=== PATIENT | male | born 1955 | race Caucasian/White ===

== ENCOUNTER 2024-09-10 16:27 | Observation (INO) ==
[2024-09-10 17:10] LABS: RETICULOCYTE % 1.03 % (0.8-2.2)
[2024-09-10 17:21] LABS: ALANINE AMINOTRANSFERASE 26 Units/L (12-78); ALBUMIN 3.7 g/dL (3.4-5.0); ALKALINE PHOSPHATASE 50 Units/L (46-116); ASPARTATE AMINO TRANSFERASE 31 Units/L (15-37); BLOOD UREA NITROGEN 27 mg/dL (7-18); CALCIUM 8.7 mg/dL (8.5-10.1); CARBON DIOXIDE 23.6 mmol/L (21-32); CHLORIDE 108 mmol/L (98-107); CREATININE 1.75 mg/dL (0.70-1.30); GLUCOSE 110 mg/dL (65-99); POTASSIUM 4.2 mmol/L (3.5-5.1); SODIUM 140 mmol/L (136-145); TOTAL PROTEIN 6.9 g/dL (6.4-8.2); eGFR NON BLACK RACES 41 (>60)
[2024-09-10] MEDS: PROTONIX INJ 40 MG VIAL 80 MG in NS 100 ML IV 80 ML IV SCH (17:36)
[2024-09-10 17:47] LABS: IRON 11 ug/dL (50-175); TOTAL IRON BINDING CAPACITY 555 ug/dL (250-450)
--- NOTE | 2024-09-10 17:48 | DR.DIZZY ---
HPI Time seen Time Seen by Provider: 09/10/24 17:25 PCP Primary Care Physician: Elizabeth Ewing Complaint Chief Complaint:: Patient stated that he had blood drawn today at his doctors and they called him approx thirty minutes prior to arrival and told him that his Hgb was 6.0 COVID-19 Coronavirus risk:travel/contact w/high risk person: No Has patient experienced Coronavirus symptoms: No Source History Provided: Patient Mode of Arrival Mode of Arrival: Ambulatory Timing Onset of Chief Complaint: 09/10/24 PMH PMH Past Medical History: Yes Past Medical History: Anemia, Asthma and COPD Past Medical History Comment: Brain Hemorrhage at , Lung Mass Past Surgical History: Yes Surgical History: Unknown Past Surgical History Comment: Brain sx Family History History of Family Medical Conditions: Yes Family Medical History: Cancer Social History Does patient currently use any type of tobacco product: No Have you used tobacco products in the last 12 months: No Type of Tobacco Use: None Does any household member use tobacco: No Alcohol Use: None Do you use any recreational Drugs:: No Lives With: Alone Lives Where: Home Travel Risk Coronavirus risk:travel/contact w/high risk person: No Has patient experienced Coronavirus symptoms: No Infectious screening In the last 2 months have you had wt loss of >10#?: NO Have you had fever, night sweats or hemotysis?: No Have you traveled outside the country in the last 6 months?: No Isolation: Standard PE Vital Signs Vitals: Vital Signs Temperature 97.8 F Pulse Rate 86 Pulse Rate 83 Pulse Rate 79 Pulse Rate 81 Pulse Rate 81 Pulse Rate 89 Pulse Rate 85 Pulse Rate 85 Pulse Rate 99 Pulse Rate 100 Pulse Rate 120 Respiratory Rate 20 Respiratory Rate 19 Respiratory Rate 15 Respiratory Rate 21 Respiratory Rate 17 Respiratory Rate 25 Respiratory Rate 16 Respiratory Rate 25 Respiratory Rate 26 Blood Pressure 143/70 Blood Pressure 140/68 Blood Pressure 135/73 Blood Pressure 146/69 Blood Pressure 135/62 O2 Sat by Pulse Oximetry 99 O2 Sat by Pulse Oximetry 96 O2 Sat by Pulse Oximetry 97 O2 Sat by Pulse Oximetry 97 O2 Sat by Pulse Oximetry 96 O2 Sat by Pulse Oximetry 99 O2 Sat by Pulse Oximetry 97 O2 Sat by Pulse Oximetry 96 O2 Sat by Pulse Oximetry 98 O2 Sat by Pulse Oximetry 96 O2 Sat by Pulse Oximetry 96 ROR Labs Reviewed 09/10/24 13:10 Laboratory: Absolute Retic 0.0405 10^6/uL 09/10/24 13:10 Percent Retic 1.03 % (0.8-2.2) 09/10/24 13:10 Sodium 140 mmol/L (136-145) 09/10/24 13:10 Corrected Sodium TNP 09/10/24 13:10 Potassium 4.2 mmol/L (3.5-5.1) 09/10/24 13:10 Chloride 108 mmol/L (98-107) H 09/10/24 13:10 Carbon Dioxide 23.6 mmol/L (21-32) 09/10/24 13:10 BUN 27 mg/dL (7-18) H 09/10/24 13:10 Creatinine 1.75 mg/dL (0.70-1.30) H 09/10/24 13:10 Est GFR (MDRD) Af Amer 50 (>60) L 09/10/24 13:10 Est GFR (MDRD) Non-Af 41 (>60) L 09/10/24 13:10 Glucose 110 mg/dL (65-99) H 09/10/24 13:10 Calcium 8.7 mg/dL (8.5-10.1) 09/10/24 13:10 Corrected Calcium TNP 09/10/24 13:10 Iron 11 ug/dL (50-175) L 09/10/24 13:10 TIBC 555 ug/dL (250-450) H 09/10/24 13:10 Transferrin 426 mg/dL (202-364) H 09/10/24 13:10 Ferritin 4 ng/mL (26-388) L 09/10/24 13:10 Total Bilirubin 0.30 mg/dL (0.2-1.0) 09/10/24 13:10 AST 31 Units/L (15-37) 09/10/24 13:10 ALT 26 Units/L (12-78) 09/10/24 13:10 Alkaline Phosphatase 50 Units/L (46-116) 09/10/24 13:10 Total Protein 6.9 g/dL (6.4-8.2) 09/10/24 13:10 Albumin 3.7 g/dL (3.4-5.0) 09/10/24 13:10 Globulin 3.2 g/dL (2.5-4.5) 09/10/24 13:10 Albumin/Globulin Ratio 1.2 Ratio (1.1-2.1) 09/10/24 13:10 Vitamin B12 241 pg/mL (193-986) 09/10/24 13:10 Folate 15.0 ng/mL (>8.6) 09/10/24 13:10 Stl Occult Blood (IFOB) Positive (NEGATIVE) A 09/10/24 17:00 Blood Type A POSITIVE 09/10/24 16:53 Antibody Screen Negative 09/10/24 16:53 Opioid Opioid Risk Tool Age (Derik box if 16-45): No History of Preadolescent Sexual Abuse: No Total: 0 Total Score Risk Category: Low Risk Copyright: Dash HERNANDEZ predicting aberrant behaviors Discharge Plan Diagnosis Discharge Problem: Anemia Qualifiers: Anemia type: unspecified type Qualified Code(s): D64.9 - Anemia, unspecified GI bleed Qualifiers: GI bleed type/associated pathology: unspecified gastrointestinal hemorrhage type Qualified Code(s): K92.2 - Gastrointestinal hemorrhage, unspecified Discharge Plan Patient Disposition: ADMITTED INPATIENT Condition: Stable Orders to Discharge Patient Discharge Orders: Transfer (Routine); Ordered 09/10/24 Ordered By: JENNIE MONTEZ
[2024-09-10 20:20] VITALS: BMI 22.9
[2024-09-10] MEDS: PULMICORT NEB TX 0.5 MG NEB SCH (20:47)
[2024-09-10] MEDS ORDERED: [UNRECOGNIZED DRUG - OTHER] IN SCH (21:00)
[2024-09-10] MEDS ORDERED: BUDESONIDE FORMOTEROL IN SCH (21:00)
[2024-09-10] MEDS: CRESTOR TAB 10 MG PO SCH (21:12)
[2024-09-10] MEDS: DESYREL PO SCH (21:50)
[2024-09-10] MEDS: KLONOPIN TAB 1 MG PO PRN (23:22)
[2024-09-11 05:21] LABS: BASOPHILS % (AUTO) 1.1 % (0.2-1.0); EOSINOPHILS # (AUTO) 0.2 x10^3/uL (0.0-0.2); EOSINOPHILS % (AUTO) 5.4 % (0.9-2.9); HEMATOCRIT 25.9 % (42.0-54.0); LYMPHOCYTES # (AUTO) 1.4 X10^3/uL (1.3-2.9); LYMPHOCYTES % (AUTO) 34.3 % (21.0-51.0); MEAN CORPUSCULAR HEMOGLOBIN 19.9 pg (27.0-34.0); MEAN CORPUSCULAR HGB CONC 32.1 g/dL (33.0-35.0); MEAN CORPUSCULAR VOLUME 61.8 fL (80.0-100.0); MEAN PLATELET VOLUME 9.1 fL (7.4-11.0); MONOCYTES # (AUTO) 0.4 x10^3/uL (0.3-0.8); MONOCYTES % (AUTO) 9.6 % (0.0-13.0); NEUTROPHILS # (AUTO) 2.1 x10^3/uL (2.2-4.8); NEUTROPHILS % (AUTO) 49.6 % (42.0-75.0); PLATELET COUNT 270 X10^3/uL (150.0-450.0); RED BLOOD COUNT 4.19 X10^6/uL (4.7-6.0); RED CELL DISTRIBUTION WIDTH 30.3 % (11.6-16.5); WHITE BLOOD COUNT 4.1 X10^3/uL (3.6-10.0)
[2024-09-11 05:25] LABS: HEMOGLOBIN 8.3 g/dL (13.5-18.0)
[2024-09-11 05:35] LABS: ALANINE AMINOTRANSFERASE 20 Units/L (12-78); ALBUMIN 3.1 g/dL (3.4-5.0); ALKALINE PHOSPHATASE 42 Units/L (46-116); ASPARTATE AMINO TRANSFERASE 20 Units/L (15-37); BLOOD UREA NITROGEN 26 mg/dL (7-18); CALCIUM 8.2 mg/dL (8.5-10.1); CARBON DIOXIDE 25.8 mmol/L (21-32); CHLORIDE 109 mmol/L (98-107); COR CA(FOR HYPOALB) 8.9 mg/dL (8.5-10.1); CREATININE 1.53 mg/dL (0.70-1.30); GLUCOSE 85 mg/dL (65-99); SODIUM 142 mmol/L (136-145); TOTAL PROTEIN 5.8 g/dL (6.4-8.2); eGFR NON BLACK RACES 48 (>60)
[2024-09-11 05:36] LABS: ANISOCYTOSIS 3+; HYPOCHROMASIA 2+; MICROCYTOSIS 2+; OVALOCYTES 1+; PLATELET MORPHOLOGY COMMENT NORMAL (NORMAL); POIKILOCYTOSIS 1+; TARGET CELLS SLIGHT
[2024-09-11] MEDS: PROVENTIL NEB TX 0.083% 2.5MG/ 3ML NEB SCH (08:42)
--- NOTE | 2024-09-11 08:51 | DR.H&P ---
H&P History & Physical for Day of: H&P Date: 09/10/24 Chief Complaint Chief Complaint: weakness and fatigue, sob on exertion, "anemic" History of Present Illness History of Present Illness: PT IS 69 WM, ER ADMISSION AFTER PRESENTING WITH CO HE HAD ABNORMAL LABS PER PCP AND DR AMEZQUITA, WITH RESULTS OF LOW HGB AND PT WAS INSTRUCTED TO REPORT TO ER. 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 PT REPORTS HE HAS BEEN HAVING INCREASED COUGH, MILD TROUBLE SWALLOWING OR COUGING WITH EATING/DRINKING. PT HAS POSITIVE OCCULT STOOL AND HAS HAD HX OF ANEMIA IN THE PAST YEAR. 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 PT ADMITTED FOR TREATMENT AND EVALUATION OF ACUTE ILLNESS. Past Medical History Past Medical History: Anemia, Arthritis, Asthma and COPD Past Surgical History Surgical History: No History Family History Family Medical History: Hypertension Social History Does patient currently use any type of tobacco product: No Have you used tobacco products in the last 12 months: No Type of Tobacco Use: None Does any household member use tobacco: No Alcohol Use: None Drug Use: None Medications Home Medications: Home Medications Medication Instructions Recorded Confirmed Type amlodipine 2.5 mg tablet 2.5 mg PO QDAY 09/10/2408/01 History budesonide-formoterol HFA 160 2 puff inhalation BID 09/10/24 History mcg-4.5 mcg/actuation aerosol inhaler (Breyna) clonazepam 1 mg tablet 1 mg PO QDAY PRN 09/10/24 History ergocalciferol (vitamin D2) 1,250 1,250 mcg PO 2XW 08/0109/10/24 History mcg (50,000 unit) capsule escitalopram oxalate 5 mg tablet 5 mg PO QDAY anxiety 09/10/24 09/10/24 History famotidine 40 mg tablet 40 mg PO QDAY 09/10/2409/10 History fenofibrate 160 mg tablet 160 mg PO QPM 09/10/2409/10 History levocetirizine 5 mg tablet 5 mg PO QDAY allergies 08/0109/10/24 History levothyroxine 75 mcg tablet 75 mcg PO QDAY 09/10/24 History losartan 25 mg tablet 25 mg PO DAILY 09/10/2408/01 History meloxicam 15 mg tablet 15 mg PO QDAY 09/10/2409/10 History pantoprazole 40 mg tablet,delayed 40 mg PO QDAY 09/10/24 History release rosuvastatin 5 mg tablet 5 mg PO QPM 09/10/24 5 History trazodone 50 mg tablet 50 mg PO QPM insomnia 09/10/24 History Allergies Allergies Allergy/AdvReac Type Severity Reaction Status Date / Time codeine Allergy Verified 09/10/24 16:56 Labs 09/11/24 04:44 09/11/24 04:44 Labs: Laboratory WBC 4.1 X10^3/uL (3.6-10.0) 09/11/24 04:44 RBC 4.19 X10^6/uL (4.7-6.0) L 09/11/24 04:44 Hgb 8.3 g/dL (13.5-18.0) L D 09/11/24 04:44 Hct 25.9 % (42.0-54.0) L 09/11/24 04:44 MCV 61.8 fL (80.0-100.0) L 09/11/24 04:44 MCH 19.9 pg (27.0-34.0) L 09/11/24 04:44 MCHC 32.1 g/dL (33.0-35.0) L 09/11/24 04:44 RDW 30.3 % (11.6-16.5) H 09/11/24 04:44 Plt Count 270 X10^3/uL (150.0-450.0) 09/11/24 04:44 Plt Count Comment Adequate (ADEQUATE) 09/11/24 04:44 MPV 9.1 fL (7.4-11.0) 09/11/24 04:44 Neut % (Auto) 49.6 % (42.0-75.0) 09/11/24 04:44 Lymph % (Auto) 34.3 % (21.0-51.0) 09/11/24 04:44 [place] % (Auto) 9.6 % (0.0-13.0) 09/11/24 04:44 Eos % (Auto) 5.4 % (0.9-2.9) H 09/11/24 04:44 Baso % (Auto) 1.1 % (0.2-1.0) H 09/11/24 04:44 Neut # (Auto) 2.1 x10^3/uL (2.2-4.8) L 09/11/24 04:44 Lymph # (Auto) 1.4 X10^3/uL (1.3-2.9) 09/11/24 04:44 [place] # (Auto) 0.4 x10^3/uL (0.3-0.8) 09/11/24 04:44 Eos # (Auto) 0.2 x10^3/uL (0.0-0.2) 09/11/24 04:44 Baso # (Auto) 0.0 X10^3/uL (0.0-0.1) 09/11/24 04:44 Absolute Nucleated RBC 0.1 /100WBC 09/11/24 04:44 Plt Morphology Comment Normal (NORMAL) 09/11/24 04:44 RBC Morphology Abnormal (NORMAL) 09/11/24 04:44 Dimorphic RBCs Slight 09/11/24 04:44 Hypochromasia 2+ A 09/11/24 04:44 Poikilocytosis 1+ A 09/11/24 04:44 Anisocytosis 3+ A 09/11/24 04:44 Microcytosis 2+ A 09/11/24 04:44 Target Cells Slight A 09/11/24 04:44 Ovalocytes 1+ A 09/11/24 04:44 Absolute Retic 0.0405 10^6/uL 09/10/24 13:10 Percent Retic 1.03 % (0.8-2.2) 09/10/24 13:10 Sodium 142 mmol/L (136-145) 09/11/24 04:44 Corrected Sodium TNP 09/11/24 04:44 Potassium 4.0 mmol/L (3.5-5.1) 09/11/24 04:44 Chloride 109 mmol/L (98-107) H 09/11/24 04:44 Carbon Dioxide 25.8 mmol/L (21-32) 09/11/24 04:44 BUN 26 mg/dL (7-18) H 09/11/24 04:44 Creatinine 1.53 mg/dL (0.70-1.30) H 09/11/24 04:44 Est GFR (MDRD) Af Amer 59 (>60) 09/11/24 04:44 Est GFR (MDRD) Non-Af 48 (>60) L 09/11/24 04:44 Glucose 85 mg/dL (65-99) 09/11/24 04:44 Calcium 8.2 mg/dL (8.5-10.1) L 09/11/24 04:44 Corrected Calcium 8.9 mg/dL (8.5-10.1) 09/11/24 04:44 Iron 11 ug/dL (50-175) L 09/10/24 13:10 TIBC 555 ug/dL (250-450) H 09/10/24 13:10 Transferrin 426 mg/dL (202-364) H 09/10/24 13:10 Ferritin 4 ng/mL (26-388) L 09/10/24 13:10 Total Bilirubin 0.90 mg/dL (0.2-1.0) 09/11/24 04:44 AST 20 Units/L (15-37) 09/11/24 04:44 ALT 20 Units/L (12-78) 09/11/24 04:44 Alkaline Phosphatase 42 Units/L (46-116) L 09/11/24 04:44 Total Protein 5.8 g/dL (6.4-8.2) L 09/11/24 04:44 Albumin 3.1 g/dL (3.4-5.0) L 09/11/24 04:44 Globulin 2.7 g/dL (2.5-4.5) 09/11/24 04:44 Albumin/Globulin Ratio 1.1 Ratio (1.1-2.1) 09/11/24 04:44 Vitamin B12 241 pg/mL (193-986) 09/10/24 13:10 Folate 15.0 ng/mL (>8.6) 09/10/24 13:10 Stl Occult Blood (IFOB) Positive (NEGATIVE) A 09/10/24 17:00 Blood Type A POSITIVE 09/10/24 16:53 Antibody Screen Negative 09/10/24 16:53 Crossmatch See Detail 09/10/24 16:53 Review of Systems Constitutional: Malaise Eyes: No Symptoms Reported ENT: No Symptoms Reported Respiratory: SOB with Excertion (MILD) Cardiovascular: No Symptoms Reported Gastrointestinal: Nausea Genitourinary: No Symptoms Reported Musculoskeletal: No Symptoms Reported Skin: No Symptoms Reported Neurological: Weakness (MILD DIFFUSE) Physical Exam Vital Signs: Vital Signs Temperature 98.4 F Temperature 98.2 F Temperature 98.3 F Pulse Rate [Apical] 61 Pulse Rate [Apical] 60 Pulse Rate [Apical] 59 Pulse Rate [Apical] 74 Respiratory Rate 19 Respiratory Rate 24 Respiratory Rate 20 Respiratory Rate 20 Blood Pressure [Left Arm] 113/58 Blood Pressure [Left Arm] 100/53 Blood Pressure [Left Arm] 100/52 Blood Pressure [Left Arm] 125/60 O2 Sat by Pulse Oximetry 96 O2 Sat by Pulse Oximetry 99 O2 Sat by Pulse Oximetry 98 O2 Sat by Pulse Oximetry 98 Oriented: Normal Eyes: Normal Nose: Normal Throat: Normal Respiratory: LLL Diminished Cardiovascular: Normal Auscultation: Bowel Sounds: Normal Palpation: Normal Tenderness: LUQ, Epigastric and Mild Musculoskeletal: Normal Psychiatric: Normal Affect: Normal Speech Pattern: Clear and Appropriate Assessment/Plan (1) GI bleed: Qualifiers: GI bleed type/associated pathology: unspecified gastrointestinal hemorrhage type Qualified Code(s): K92.2 - Gastrointestinal hemorrhage, unspecified Status: Acute Plan: ADMIT, STOOL STUDIES ON ADMISSION NO NSAIDS, BID PROTONIX GI CONSULT WITH DR RIVER IV HYDRATION, BP CONTROL TRANSFUSE 2 UNITS PRBC PER PROTOCOL, IRON REPLACEMENT (2) Anemia: Qualifiers: Anemia type: unspecified type Qualified Code(s): D64.9 - Anemia, unspecified Status: Acute (3) JOSE (acute kidney injury): Status: Acute (4) Arthritis: Status: Acute (5) COPD (chronic obstructive pulmonary disease): Status: Acute (6) Hypothyroid: Status: Acute
[2024-09-11] MEDS ORDERED: PATIENT'S HOME MEDICATION (Levocetirizine 5 mg tablet) PO SCH (09:00)
[2024-09-11] MEDS: PROTONIX INJ 40 MG VIAL IVP SCH (09:55)
[2024-09-11] MEDS: SYNTHROID 75 mcg TAB PO SCH (09:55)
[2024-09-11] MEDS: NORVASC TAB 2.5 MG PO SCH (09:55)
[2024-09-11] MEDS: INJECTAFER 750 MG in NS 250 ML IV 250 ML IV NR (09:55)
[2024-09-11] MEDS: COZAAR PO SCH (09:56)
[2024-09-11] MEDS: PEPCID TAB 40 MG PO SCH (09:56)
[2024-09-11] MEDS: NS 1,000 ML IV 1,000 ML IV SCH (10:20)
[2024-09-11] MEDS: NORVASC TAB 2.5 MG ONE (12:31)
[2024-09-11] MEDS: XYLOCAINE 2 % (PLAIN) ONE (13:30)
[2024-09-11] MEDS: DIPRIVAN VIAL 20 ML ONE (13:30)
[2024-09-11] MEDS: ZyrTEC TAB 10 MG PO SCH (16:41)
[2024-09-11] MEDS: LEXAPRO PO SCH (16:41)
[2024-09-11] MEDS: SUPREP BOWEL PREP KIT PO SCH (17:41)
[2024-09-12 04:52] LABS: BASOPHILS # (AUTO) 0.1 X10^3/uL (0.0-0.1); BASOPHILS % (AUTO) 0.9 % (0.2-1.0); EOSINOPHILS # (AUTO) 0.2 x10^3/uL (0.0-0.2); EOSINOPHILS % (AUTO) 3.2 % (0.9-2.9); HEMOGLOBIN 8.5 g/dL (13.5-18.0); LYMPHOCYTES # (AUTO) 1.2 X10^3/uL (1.3-2.9); LYMPHOCYTES % (AUTO) 21.7 % (21.0-51.0); MEAN CORPUSCULAR HEMOGLOBIN 20.1 pg (27.0-34.0); MEAN CORPUSCULAR HGB CONC 32.6 g/dL (33.0-35.0); MEAN CORPUSCULAR VOLUME 61.5 fL (80.0-100.0); MEAN PLATELET VOLUME 8.6 fL (7.4-11.0); MONOCYTES # (AUTO) 0.5 x10^3/uL (0.3-0.8); MONOCYTES % (AUTO) 8.6 % (0.0-13.0); NEUTROPHILS # (AUTO) 3.6 x10^3/uL (2.2-4.8); NEUTROPHILS % (AUTO) 65.6 % (42.0-75.0); PLATELET COUNT 301 X10^3/uL (150.0-450.0); RED BLOOD COUNT 4.22 X10^6/uL (4.7-6.0); RED CELL DISTRIBUTION WIDTH 29.1 % (11.6-16.5); WHITE BLOOD COUNT 5.5 X10^3/uL (3.6-10.0)
[2024-09-12 05:06] LABS: ALANINE AMINOTRANSFERASE 21 Units/L (12-78); ALBUMIN 3.4 g/dL (3.4-5.0); ALKALINE PHOSPHATASE 45 Units/L (46-116); ASPARTATE AMINO TRANSFERASE 20 Units/L (15-37); BLOOD UREA NITROGEN 14 mg/dL (7-18); CALCIUM 8.8 mg/dL (8.5-10.1); CARBON DIOXIDE 24.4 mmol/L (21-32); CHLORIDE 111 mmol/L (98-107); GLUCOSE 91 mg/dL (65-99); POTASSIUM 3.6 mmol/L (3.5-5.1); SODIUM 144 mmol/L (136-145); TOTAL PROTEIN 6.3 g/dL (6.4-8.2); eGFR NON BLACK RACES 54 (>60)
[2024-09-12 05:08] LABS: PLATELET MORPHOLOGY COMMENT NORMAL (NORMAL)
[2024-09-12 05:09] LABS: ANISOCYTOSIS 3+; HYPOCHROMASIA 2+; MICROCYTOSIS 2+; OVALOCYTES PRESENT; POIKILOCYTOSIS PRESENT; SCHISTOCYTES PRESENT; TARGET CELLS PRESENT
[2024-09-12] MEDS ORDERED: CONSULT PHARMACY - POTASSIUM & MAGNESIUM XX SCH ×2 (06:00→10:00)
--- NOTE | 2024-09-12 06:00 | CT ---
PROCEDURE: CT Abdomen and Pelvis with IV Contrast. HISTORY: Gastrointestinal hemorrhage and anemia. TECHNIQUE: Axial images were performed through the abdomen and pelvis with the administration of IV contrast with multiplanar reformations . Oral contrast wasadministered. Dose reduction techniques including Automated Exposure Control (AEC) and adjustment of mA and kV were utilized .. COMPARISON: None. TECHNICAL QUALITY: Satisfactory. FINDINGS: 3 mm subpleural density left lower lobe laterally image 13 series number 3. Liver, spleen, adrenals, and pancreas show no abnormality. Kidneys show normal enhancement with no mass or obstruction. Normal biliary tract. No ascites or pneumoperitoneum. Normal aorta. No lymphadenopathy. No bowel obstruction or inflammation and normal appendix. Minimal colonic diverticulosis. Pelvis shows no masses or free fluid normal urinary bladder. No acute bony abnormality. IMPRESSION: 1. Minimal colonic diverticulosis. 2. No other significant abnormality identified. THIS IS AN ELECTRONICALLY VERIFIED FINAL REPORT 09/12/2024 5:57 AM - Electronically signed by Edin Swan MD
[2024-09-12] MEDS: DIPRIVAN VIAL 20 ML ONE ×2 (08:13→08:41)
[2024-09-12] MEDS ORDERED: K-RIDER 10 MEQ/100 ML WATER 10 MEQ/100 ML BAG IV SCH (09:00)
[2024-09-12] MEDS ORDERED: VITAMIN D (1.25MG) PO SCH (09:00)
[2024-09-12 09:32] LABS: CRYPTOSPORIDIUM PARVUM ANTIGEN NEGATIVE (NEGATIVE); GIARDIA LAMBLIA ANTIGEN NEGATIVE (NEGATIVE)
[2024-09-12] MEDS ORDERED: NORVASC TAB 2.5 MG ONE (09:59)
[2024-09-12] MEDS ORDERED: LEXAPRO ONE (10:00)
[2024-09-12] MEDS: MAG-OX TAB PO SCH (10:06)
[2024-09-12] MEDS: K-DUR TAB 20 MEQ PO SCH (10:07)
[2024-09-12] MEDS: ZOFRAN INJ 4 MG VIAL IVP PRN (14:03)
[2024-09-12] MEDS ORDERED: PHENERGAN INJ 25 MG IM ONE (14:53)
[2024-09-12] MEDS: PHENERGAN INJ 25 MG IM PRN (14:55)
[2024-09-12] MEDS: READI-CAT 2 ONE (18:51)
[2024-09-12] MEDS: OMNIPAQUE 350 mg/mL 100 mL BTL 100 ML ONE (18:51)
[2024-09-12] MEDS: NS 250 ML IV 250 ML IV ONE ×2 (18:52→18:54)
[2024-09-12 19:33] LABS: HEMATOCRIT 28.4 % (42.0-54.0); HEMOGLOBIN 9.1 g/dL (13.5-18.0)
[2024-09-13 04:23] VITALS: O2SAT 98
[2024-09-13 04:54] LABS: BASOPHILS % (AUTO) 0.6 % (0.2-1.0); EOSINOPHILS # (AUTO) 0.2 x10^3/uL (0.0-0.2); HEMATOCRIT 27.8 % (42.0-54.0); HEMOGLOBIN 8.8 g/dL (13.5-18.0); LYMPHOCYTES # (AUTO) 1.7 X10^3/uL (1.3-2.9); LYMPHOCYTES % (AUTO) 27.2 % (21.0-51.0); MEAN CORPUSCULAR HGB CONC 31.9 g/dL (33.0-35.0); MEAN CORPUSCULAR VOLUME 65.9 fL (80.0-100.0); MEAN PLATELET VOLUME 8.5 fL (7.4-11.0); MONOCYTES # (AUTO) 0.6 x10^3/uL (0.3-0.8); MONOCYTES % (AUTO) 9.4 % (0.0-13.0); NEUTROPHILS # (AUTO) 3.6 x10^3/uL (2.2-4.8); NEUTROPHILS % (AUTO) 59.8 % (42.0-75.0); PLATELET COUNT 262 X10^3/uL (150.0-450.0); RED BLOOD COUNT 4.22 X10^6/uL (4.7-6.0); WHITE BLOOD COUNT 6.1 X10^3/uL (3.6-10.0)
[2024-09-13 05:05] LABS: ALANINE AMINOTRANSFERASE 17 Units/L (12-78); ALBUMIN 3.1 g/dL (3.4-5.0); ALKALINE PHOSPHATASE 43 Units/L (46-116); ASPARTATE AMINO TRANSFERASE 17 Units/L (15-37); BLOOD UREA NITROGEN 14 mg/dL (7-18); CALCIUM 8.5 mg/dL (8.5-10.1); CARBON DIOXIDE 28.6 mmol/L (21-32); CHLORIDE 109 mmol/L (98-107); COR CA(FOR HYPOALB) 9.2 mg/dL (8.5-10.1); CREATININE 1.37 mg/dL (0.70-1.30); GLUCOSE 89 mg/dL (65-99); MAGNESIUM 1.9 mg/dL (2.0-2.9); POTASSIUM 3.8 mmol/L (3.5-5.1); SODIUM 144 mmol/L (136-145); TOTAL PROTEIN 5.9 g/dL (6.4-8.2); eGFR NON BLACK RACES 55 (>60)
[2024-09-13 05:15] LABS: PLATELET MORPHOLOGY COMMENT NORMAL (NORMAL)
[2024-09-13 05:16] LABS: ANISOCYTOSIS 3+; HYPOCHROMASIA 2+; MICROCYTOSIS 1+; OVALOCYTES PRESENT; POIKILOCYTOSIS PRESENT; SCHISTOCYTES PRESENT; TARGET CELLS PRESENT
[2024-09-13] MEDS ORDERED: CONSULT PHARMACY - POTASSIUM & MAGNESIUM XX SCH (07:00)
[2024-09-13] MEDS: K-DUR TAB 20 MEQ PO SCH (08:28)
[2024-09-13] MEDS: MAG-OX TAB PO SCH (08:28)
[2024-09-13] MEDS: LEXAPRO ONE (08:29)
[2024-09-13] MEDS: NORVASC TAB 2.5 MG ONE (08:30)
[2024-09-13 10:40] VITALS: BP 131/60; PULSE 66; RESP 19; TEMP 97.4
--- NOTE | 2024-09-16 11:05 | W.DIS.FURT ---
Summary of Discharge Discharge Summary of Date Date of Exam: 09/13/24 Admission Date Date of Admission: 09/10/24 Admission Diagnosis Patient Problems (Updated 09/13/24 @ 10:52 by Eliana Cueto MD) GI bleed (Acute) K92.2 Anemia (Acute) D64.9 Hospital Course: Mr. Sewell is a 69-year-old male presented with abnormal labs which showed low hemoglobin. Patient was told to go to the ER. He is currently seeing pulmonary for a cavitary lesion on the right lung. He does have a history of anemia. He did have positive occult stool. He was admitted for further management. His hemoglobin was 6.3 on admission. He did receive 3 units of blood transfusion. He denied having any active bleeding. Dr. Stark was consulted, he did undergo EGD and colonoscopy. EGD showed hiatal hernia and moderate gastritis. Colonoscopy was concerning for a friable mass, biopsies were collected. He was feeling well. His labs are monitored daily and electrolytes replace as needed. His hemoglobin improved to 8.8. He was stable to be discharged home. He will follow-up with PCP and surgery as scheduled. Vital Signs: Vital Signs (72 hours) 09/10/24 16:36 09/10/24 16:56 09/10/24 17:02 Temperature 97.8 F Pulse Rate 120 H 100 H Pulse Rate [Apical] Pulse Rate [Left Brachial] Respiratory Rate 26 H 25 H Blood Pressure 135/62 Blood Pressure [Left Arm] O2 Sat by Pulse Oximetry 96 96 Oxygen Delivery Method Room Air Oxygen Flow Rate FIO2% 09/10/24 17:03 09/10/24 17:03 09/10/24 17:15 Temperature Pulse Rate 99 H 85 Pulse Rate [Apical] Pulse Rate [Left Brachial] Respiratory Rate Blood Pressure 146/69 Blood Pressure [Left Arm] O2 Sat by Pulse Oximetry 98 96 Oxygen Delivery Method Oxygen Flow Rate FIO2% 09/10/24 17:30 09/10/24 17:30 09/10/24 17:45 Temperature Pulse Rate 85 89 Pulse Rate [Apical] Pulse Rate [Left Brachial] Respiratory Rate 16 25 H Blood Pressure 135/73 Blood Pressure [Left Arm] O2 Sat by Pulse Oximetry 97 99 Oxygen Delivery Method Oxygen Flow Rate FIO2% 09/10/24 18:00 09/10/24 18:00 09/10/24 18:15 Temperature Pulse Rate 81 81 Pulse Rate [Apical] Pulse Rate [Left Brachial] Respiratory Rate 17 21 Blood Pressure 140/68 Blood Pressure [Left Arm] O2 Sat by Pulse Oximetry 96 97 Oxygen Delivery Method Room Air Oxygen Flow Rate FIO2% 09/10/24 18:30 09/10/24 18:30 09/10/24 18:45 Temperature Pulse Rate 79 83 Pulse Rate [Apical] Pulse Rate [Left Brachial] Respiratory Rate 15 19 Blood Pressure 143/70 Blood Pressure [Left Arm] O2 Sat by Pulse Oximetry 97 96 Oxygen Delivery Method Oxygen Flow Rate FIO2% 09/10/24 19:00 09/10/24 19:15 09/10/24 19:30 Temperature 98.6 F Pulse Rate 86 84 83 Pulse Rate [Apical] Pulse Rate [Left Brachial] Respiratory Rate 20 16 18 Blood Pressure 152/71 Blood Pressure [Left Arm] O2 Sat by Pulse Oximetry 99 99 99 Oxygen Delivery Method Oxygen Flow Rate FIO2% 09/10/24 19:30 09/10/24 19:53 09/10/24 20:00 Temperature Pulse Rate 73 Pulse Rate [Apical] Pulse Rate [Left Brachial] Respiratory Rate 15 Blood Pressure 150/68 Blood Pressure [Left Arm] O2 Sat by Pulse Oximetry 99 Oxygen Delivery Method Room Air Room Air Oxygen Flow Rate FIO2% 09/10/24 20:47 09/10/24 21:00 09/10/24 22:00 Temperature Pulse Rate 85 76 92 H Pulse Rate [Apical] Pulse Rate [Left Brachial] Respiratory Rate 17 23 Blood Pressure 148/67 147/82 Blood Pressure [Left Arm] O2 Sat by Pulse Oximetry 100 99 100 Oxygen Delivery Method Oxygen Flow Rate FIO2% 09/10/24 23:00 09/11/24 00:00 09/11/24 01:00 Temperature 98.3 F 98.3 F Pulse Rate 89 Pulse Rate [Apical] 69 74 Pulse Rate [Left Brachial] Respiratory Rate 22 21 20 Blood Pressure 123/59 Blood Pressure [Left Arm] 125/58 125/60 O2 Sat by Pulse Oximetry 100 98 98 Oxygen Delivery Method Room Air Room Air Oxygen Flow Rate FIO2% 09/11/24 01:40 09/11/24 02:40 09/11/24 04:00 Temperature 98.2 F 98.4 F Pulse Rate Pulse Rate [Apical] 59 L 60 61 Pulse Rate [Left Brachial] Respiratory Rate 20 24 19 Blood Pressure Blood Pressure [Left Arm] 100/52 100/53 113/58 O2 Sat by Pulse Oximetry 98 99 96 Oxygen Delivery Method Room Air Room Air Room Air Oxygen Flow Rate FIO2% 09/11/24 07:00 09/11/24 07:54 09/11/24 08:00 Temperature 98.0 F Pulse Rate Pulse Rate [Apical] 63 Pulse Rate [Left Brachial] Respiratory Rate 18 Blood Pressure Blood Pressure [Left Arm] 138/65 O2 Sat by Pulse Oximetry 100 Oxygen Delivery Method Room Air Room Air Room Air Oxygen Flow Rate 2 FIO2% 28 09/11/24 12:00 09/11/24 13:00 09/11/24 14:00 Temperature 98.8 F Pulse Rate Pulse Rate [Apical] 63 78 69 Pulse Rate [Left Brachial] Respiratory Rate 18 15 18 Blood Pressure Blood Pressure [Left Arm] 134/64 155/75 127/59 O2 Sat by Pulse Oximetry 97 97 98 Oxygen Delivery Method Room Air Room Air Room Air Oxygen Flow Rate FIO2% 09/11/24 14:15 09/11/24 14:30 09/11/24 14:45 Temperature Pulse Rate Pulse Rate [Apical] 75 80 76 Pulse Rate [Left Brachial] Respiratory Rate 15 15 17 Blood Pressure Blood Pressure [Left Arm] 118/62 151/78 144/80 O2 Sat by Pulse Oximetry 98 99 98 Oxygen Delivery Method Room Air Room Air Room Air Oxygen Flow Rate FIO2% 09/11/24 15:00 09/11/24 15:15 09/11/24 19:00 Temperature Pulse Rate Pulse Rate [Apical] 64 71 Pulse Rate [Left Brachial] Respiratory Rate 18 20 Blood Pressure Blood Pressure [Left Arm] 129/69 130/68 O2 Sat by Pulse Oximetry 100 99 Oxygen Delivery Method Room Air Room Air Oxygen Flow Rate FIO2% 09/11/24 20:00 09/11/24 21:00 09/11/24 21:02 Temperature 98.2 F Pulse Rate 71 Pulse Rate [Apical] 74 Pulse Rate [Left Brachial] Respiratory Rate 22 Blood Pressure Blood Pressure [Left Arm] 159/79 O2 Sat by Pulse Oximetry 98 95 Oxygen Delivery Method Room Air Room Air Oxygen Flow Rate FIO2% 09/12/24 00:00 09/12/24 04:00 09/12/24 04:07 Temperature 98.4 F 98.4 F Pulse Rate Pulse Rate [Apical] 72 69 Pulse Rate [Left Brachial] Respiratory Rate 20 18 Blood Pressure Blood Pressure [Left Arm] 117/58 128/60 O2 Sat by Pulse Oximetry 94 L 89 L Oxygen Delivery Method Room Air Room Air Nasal Cannula Oxygen Flow Rate 2 FIO2% 28 09/12/24 04:30 09/12/24 07:00 09/12/24 08:00 Temperature 98.9 F Pulse Rate Pulse Rate [Apical] 75 Pulse Rate [Left Brachial] Respiratory Rate 16 Blood Pressure Blood Pressure [Left Arm] 158/75 O2 Sat by Pulse Oximetry 96 95 Oxygen Delivery Method Nasal Cannula Room Air Room Air Oxygen Flow Rate FIO2% 09/12/24 09:00 09/12/24 09:15 09/12/24 09:30 Temperature Pulse Rate Pulse Rate [Apical] 78 79 90 Pulse Rate [Left Brachial] Respiratory Rate 20 26 H 23 Blood Pressure Blood Pressure [Left Arm] 136/67 142/68 147/65 O2 Sat by Pulse Oximetry 93 L 96 98 Oxygen Delivery Method Room Air Room Air Room Air Oxygen Flow Rate FIO2% 09/12/24 09:45 09/12/24 10:00 09/12/24 10:15 Temperature Pulse Rate Pulse Rate [Apical] 91 H 85 85 Pulse Rate [Left Brachial] Respiratory Rate 24 22 21 Blood Pressure Blood Pressure [Left Arm] 137/67 132/63 137/68 O2 Sat by Pulse Oximetry 97 95 96 Oxygen Delivery Method Room Air Room Air Room Air Oxygen Flow Rate FIO2% 09/12/24 10:30 09/12/24 10:45 09/12/24 11:00 Temperature Pulse Rate Pulse Rate [Apical] 82 81 72 Pulse Rate [Left Brachial] Respiratory Rate 21 24 20 Blood Pressure Blood Pressure [Left Arm] 130/63 124/58 121/64 O2 Sat by Pulse Oximetry 94 L 95 94 L Oxygen Delivery Method Room Air Room Air Room Air Oxygen Flow Rate FIO2% 09/12/24 11:15 09/12/24 11:30 09/12/24 11:45 Temperature Pulse Rate Pulse Rate [Apical] 67 63 62 Pulse Rate [Left Brachial] Respiratory Rate 18 18 19 Blood Pressure Blood Pressure [Left Arm] 125/68 126/66 131/62 O2 Sat by Pulse Oximetry 94 L 95 94 L Oxygen Delivery Method Room Air Room Air Room Air Oxygen Flow Rate FIO2% 09/12/24 12:00 09/12/24 12:15 09/12/24 18:54 Temperature 97.8 F Pulse Rate Pulse Rate [Apical] 69 72 Pulse Rate [Left Brachial] Respiratory Rate 19 20 Blood Pressure Blood Pressure [Left Arm] 136/69 116/59 O2 Sat by Pulse Oximetry 94 L 95 Oxygen Delivery Method Room Air Room Air Room Air Oxygen Flow Rate FIO2% 09/12/24 20:00 09/12/24 20:23 09/12/24 20:23 Temperature 97.8 F Pulse Rate 78 Pulse Rate [Apical] 81 Pulse Rate [Left Brachial] Respiratory Rate 18 Blood Pressure Blood Pressure [Left Arm] 122/55 O2 Sat by Pulse Oximetry 96 98 Oxygen Delivery Method Room Air Room Air Oxygen Flow Rate FIO2% 09/13/24 00:00 09/13/24 04:00 09/13/24 07:00 Temperature 98.1 F 97.9 F Pulse Rate Pulse Rate [Apical] 68 57 L Pulse Rate [Left Brachial] Respiratory Rate 19 18 Blood Pressure Blood Pressure [Left Arm] 115/58 128/62 O2 Sat by Pulse Oximetry 97 98 Oxygen Delivery Method Room Air Room Air Room Air Oxygen Flow Rate FIO2% 09/13/24 08:00 09/13/24 08:19 Temperature 97.4 F L Pulse Rate Pulse Rate [Apical] Pulse Rate [Left Brachial] 66 Respiratory Rate 19 Blood Pressure Blood Pressure [Left Arm] 131/60 O2 Sat by Pulse Oximetry 95 98 Oxygen Delivery Method Room Air Oxygen Flow Rate FIO2% Labs: Laboratory Last Values WBC 6.1 X10^3/uL (3.6-10.0) 09/13/24 04:10 RBC 4.22 X10^6/uL (4.7-6.0) L 09/13/24 04:10 Hgb 8.8 g/dL (13.5-18.0) L 09/13/24 04:10 Hct 27.8 % (42.0-54.0) L 09/13/24 04:10 MCV 65.9 fL (80.0-100.0) L 09/13/24 04:10 MCH 21.0 pg (27.0-34.0) L 09/13/24 04:10 MCHC 31.9 g/dL (33.0-35.0) L 09/13/24 04:10 RDW 32.0 % (11.6-16.5) H 09/13/24 04:10 Plt Count 262 X10^3/uL (150.0-450.0) 09/13/24 04:10 Plt Count Comment Adequate (ADEQUATE) 09/13/24 04:10 MPV 8.5 fL (7.4-11.0) 09/13/24 04:10 Neut % (Auto) 59.8 % (42.0-75.0) 09/13/24 04:10 Lymph % (Auto) 27.2 % (21.0-51.0) 09/13/24 04:10 Ector % (Auto) 9.4 % (0.0-13.0) 09/13/24 04:10 Eos % (Auto) 3.0 % (0.9-2.9) H 09/13/24 04:10 Baso % (Auto) 0.6 % (0.2-1.0) 09/13/24 04:10 Neut # (Auto) 3.6 x10^3/uL (2.2-4.8) 09/13/24 04:10 Lymph # (Auto) 1.7 X10^3/uL (1.3-2.9) 09/13/24 04:10 Ector # (Auto) 0.6 x10^3/uL (0.3-0.8) 09/13/24 04:10 Eos # (Auto) 0.2 x10^3/uL (0.0-0.2) 09/13/24 04:10 Baso # (Auto) 0.0 X10^3/uL (0.0-0.1) 09/13/24 04:10 Absolute Nucleated RBC 0.2 /100WBC 09/13/24 04:10 Plt Morphology Comment Normal (NORMAL) 09/13/24 04:10 RBC Morphology Abnormal (NORMAL) 09/13/24 04:10 Dimorphic RBCs Present 09/13/24 04:10 Hypochromasia 2+ A 09/13/24 04:10 Poikilocytosis Present 09/13/24 04:10 Anisocytosis 3+ A 09/13/24 04:10 Microcytosis 1+ A 09/13/24 04:10 Target Cells Present 09/13/24 04:10 Ovalocytes Present 09/13/24 04:10 Schistocytes Present 09/13/24 04:10 Absolute Retic 0.0405 10^6/uL 09/10/24 13:10 Percent Retic 1.03 % (0.8-2.2) 09/10/24 13:10 Sodium 144 mmol/L (136-145) 09/13/24 04:10 Corrected Sodium TNP 09/13/24 04:10 Potassium 3.8 mmol/L (3.5-5.1) 09/13/24 04:10 Chloride 109 mmol/L (98-107) H 09/13/24 04:10 Carbon Dioxide 28.6 mmol/L (21-32) 09/13/24 04:10 BUN 14 mg/dL (7-18) 09/13/24 04:10 Creatinine 1.37 mg/dL (0.70-1.30) H 09/13/24 04:10 Est GFR (MDRD) Af Amer > 60 (>60) 09/13/24 04:10 Est GFR (MDRD) Non-Af 55 (>60) L 09/13/24 04:10 Glucose 89 mg/dL (65-99) 09/13/24 04:10 Calcium 8.5 mg/dL (8.5-10.1) 09/13/24 04:10 Corrected Calcium 9.2 mg/dL (8.5-10.1) 09/13/24 04:10 Magnesium 1.9 mg/dL (2.0-2.9) L 09/13/24 04:10 Iron 11 ug/dL (50-175) L 09/10/24 13:10 TIBC 555 ug/dL (250-450) H 09/10/24 13:10 Transferrin 426 mg/dL (202-364) H 09/10/24 13:10 Ferritin 4 ng/mL (26-388) L 09/10/24 13:10 Total Bilirubin 0.50 mg/dL (0.2-1.0) 09/13/24 04:10 AST 17 Units/L (15-37) 09/13/24 04:10 ALT 17 Units/L (12-78) 09/13/24 04:10 Alkaline Phosphatase 43 Units/L (46-116) L 09/13/24 04:10 Total Protein 5.9 g/dL (6.4-8.2) L 09/13/24 04:10 Albumin 3.1 g/dL (3.4-5.0) L 09/13/24 04:10 Globulin 2.8 g/dL (2.5-4.5) 09/13/24 04:10 Albumin/Globulin Ratio 1.1 Ratio (1.1-2.1) 09/13/24 04:10 Vitamin B12 241 pg/mL (193-986) 09/10/24 13:10 Folate 15.0 ng/mL (>8.6) 09/10/24 13:10 Stl Occult Blood (IFOB) Positive (NEGATIVE) A 09/12/24 08:26 Stool for White Cells Positive (NEGATIVE) A 09/12/24 08:26 Stl C. diff Tox B Gene Negative (NEGATIVE) 09/12/24 08:26 Stl C. diff [id number] Presumptive negative (NEGATIVE) 09/12/24 08:26 Stool H. pylori Ag Negative (NEGATIVE) 09/12/24 08:26 Cryptosporid parvum Ag Negative (NEGATIVE) 09/12/24 08:26 Giardia lamblia Ag Negative (NEGATIVE) 09/12/24 08:26 Blood Type A POSITIVE 09/11/24 04:44 Antibody Screen Negative 09/10/24 16:53 Crossmatch See Detail 09/11/24 04:44 Tx React Prelim Eval Inconclusive 09/11/24 04:44 Tx React Symptoms Drop in bp 09/11/24 04:44 Reaction Path Interpret See comment 09/11/24 04:44 Reaction Pathol Consult Kevin crystal md 09/11/24 04:44 Blood Bank Comment Performed by Brendan 09/11/24 04:44 Reason For Visit: ANEMIA GI BLEED Discharge Diagnosis All Active Problems (Updated 09/13/24 @ 10:52 by Eliana Cueto MD) Gastritis (Acute) Hypothyroid (Acute) COPD (chronic obstructive pulmonary disease) (Acute) Arthritis (Acute) GI bleed (Acute) Anemia (Acute) Dehydration (Acute) Anemia (Acute) Lung mass (Acute) JOSE (acute kidney injury) (Acute) Plan of Treatment: Continue with present treatment and follow up plan. Pt is to keep follow up appointment as instructed and take medications as ordered. Discharge Medications Discharge Medications: codeine Allergy (Verified 09/10/24 16:56) CONTINUE taking the following medications amlodipine 2.5 mg tablet 2.5 mg PO QDAY 06/04/25 [History] budesonide-formoterol HFA 160 mcg-4.5 mcg/actuation aerosol inhaler (Breyna) 2 puff inhalation BID 09/10/24 [History] clonazepam 1 mg tablet 1 mg PO QDAY PRN 09/10/24 [History] ergocalciferol (vitamin D2) 1,250 mcg (50,000 unit) capsule 1,250 mcg PO 2XW 09/10/24 [History] escitalopram oxalate 5 mg tablet 5 mg PO QDAY anxiety 09/10/24 [History] famotidine 40 mg tablet 40 mg PO QDAY 09/10/24 [History] fenofibrate 160 mg tablet 160 mg PO QPM 09/10/24 [History] levocetirizine 5 mg tablet 5 mg PO QDAY allergies 09/10/24 [History] levothyroxine 75 mcg tablet 75 mcg PO QDAY 09/10/24 [History] losartan 25 mg tablet 25 mg PO DAILY 09/10/24 [History] rosuvastatin 5 mg tablet 5 mg PO QPM 09/10/24 [History] trazodone 50 mg tablet 50 mg PO QPM insomnia 09/10/24 [History] New Prescriptions pantoprazole 40 mg tablet,delayed release 40 mg PO BID 30 days #60 tabs 09/13/24 [Rx] Discharge Disposition Discharge Disposition: To home Discharge Condition: Stable Discharge Plan Discharge Plan Hospital Course: Mr. Sewell is a 69-year-old male presented with abnormal labs which showed low hemoglobin. Patient was told to go to the ER. He is currently seeing pulmonary for a cavitary lesion on the right lung. He does have a history of anemia. He did have positive occult stool. He was admitted for further management. His hemoglobin was 6.3 on admission. He did receive 3 units of blood transfusion. He denied having any active bleeding. Dr. Stark was consulted, he did undergo EGD and colonoscopy. EGD showed hiatal hernia and moderate gastritis. Colonoscopy was concerning for a friable mass, biopsies were collected. He was feeling well. His labs are monitored daily and electrolytes replace as needed. His hemoglobin improved to 8.8. He was stable to be discharged home. He will follow-up with PCP and surgery as scheduled. Patient Disposition: 01 HOME, SELF-CARE Condition: Stable Health Concerns: Post Hospitalization: new medications and changes needed to prevent readmission or further decline. Pt educated and given instructions on all concerns. Plan of Treatment: Continue with present treatment and follow up plan. Pt is to keep follow up appointment as instructed and take medications as ordered. Prescription drug monitoring program results: PDMP reviewed and no concerns identified Prescriptions: Continued trazodone 50 mg tablet 50 mg PO QPM famotidine 40 mg tablet 40 mg PO QDAY clonazepam 1 mg tablet 1 mg PO QDAY PRN amlodipine 2.5 mg tablet 2.5 mg PO QDAY levothyroxine 75 mcg tablet 75 mcg PO QDAY losartan 25 mg tablet 25 mg PO DAILY ergocalciferol (vitamin D2) 1,250 mcg (50,000 unit) capsule 1,250 mcg PO 2XW rosuvastatin 5 mg tablet 5 mg PO QPM escitalopram oxalate 5 mg tablet 5 mg PO QDAY fenofibrate 160 mg tablet 160 mg PO QPM budesonide-formoterol [Breyna] 160-4.5 mcg/actuation HFA aerosol inhaler 2 puff INHALATION BID levocetirizine 5 mg tablet 5 mg PO QDAY Changed pantoprazole 40 mg tablet,delayed release (DR/EC) 40 mg PO BID 30 Days Qty: 60 0RF Discontinued meloxicam 15 mg tablet 15 mg PO QDAY Orders to Discharge Patient Discharge Orders: Discharge (Routine); Ordered 09/13/24 Ordered By: Eliana Cueto Follow ups/Referrals Follow ups/Referrals: STEFANIE ROWELL [STAFF PHYSICIAN, MEDICAL] - 1 WEEK RON TRIPP [Primary Care Provider, Unknown] - 3 days Instructions Instructions: Gastritis, Adult, [id number], Anemia, Colonoscopy, Adult, Care After, [id number], Hiatal Hernia, Gastrointestinal Bleeding, [id number] Activity Restrictions/Additional Instructions: Do not take Meloxicam. Begin taking Protonix twice a day Stand Alone Forms: Find Help Web Site, Post Hospital Follow Up Care Print Language: WALLISIAN
== END 2024-09-13 11:45 | disposition home or self-care (01) ==
LOC: ICU 16:27 → ER 16:27 → ICU 19:24 → MED/SURG 09-12 14:15
PROVIDERS: ADMIT Internal Medicine; ATTEND Internal Medicine
DX: E03.8 Other specified hypothyroidism; K29.00 Acute gastritis without bleeding; D12.8 Benign neoplasm of rectum; Z60.8 Other problems related to social environment; F41.8 Other specified anxiety disorders; R91.8 Other nonspecific abnormal finding of lung field; R13.11 Dysphagia, oral phase; D50.8 Other iron deficiency anemias; K63.89 Other specified diseases of intestine; K44.9 Diaphragmatic hernia without obstruction or gangrene; K92.1 Melena; K21.9 Gastro-esophageal reflux disease without esophagitis; R53.1 Weakness; D64.89 Other specified anemias; R94.4 Abnormal results of kidney function studies; E83.42 Hypomagnesemia; R97.0 Elevated carcinoembryonic antigen [CEA]; J44.9 Chronic obstructive pulmonary disease, unspecified; R06.02 Shortness of breath; M19.90 Unspecified osteoarthritis, unspecified site; N17.8 Other acute kidney failure